=== PATIENT | male | born 1960 | race Caucasian/White ===

== ENCOUNTER 2018-09-11 08:27 | Day surgery (SDC) | payer OTHER ==
[2018-09-11 09:13] VITALS: BMI 29.0
[2018-09-11 10:47] VITALS: TEMP 97.8
[2018-09-11 11:53] VITALS: BP 118/68; PULSE 77
== END 2018-09-11 12:10 | disposition home or self-care (01) ==
LOC: JASU-ENDO 08:27
PROVIDERS: ATTEND Internal Medicine Gastroenterology
PROC: 0DJD8ZZ Inspection of Lower Intestinal Tract, Via Natural or Artificial Opening Endoscopic (ICD-10-PCS; principal; 2018-09-11 09:00)
DX: Z12.11 Encounter for screening for malignant neoplasm of colon (principal); Z80.0 Family history of malignant neoplasm of digestive organs; K63.89 Other specified diseases of intestine; K64.8 Other hemorrhoids

== ENCOUNTER 2019-08-12 10:44 | Day surgery (SDC) | payer OTHER ==
[2019-08-12 11:39] VITALS: BMI 29.0
[2019-08-12 12:43] VITALS: TEMP 97.5
[2019-08-12 13:55] VITALS: BP 109/72; PULSE 74
== END 2019-08-12 13:10 | disposition home or self-care (01) ==
LOC: JASU-ENDO 10:44
PROVIDERS: ATTEND Internal Medicine Gastroenterology
PROC: 0DB68ZX Excision of Stomach, Via Natural or Artificial Opening Endoscopic, Diagnostic (ICD-10-PCS; 2019-08-12)
PROC: 0DB18ZX Excision of Upper Esophagus, Via Natural or Artificial Opening Endoscopic, Diagnostic (ICD-10-PCS; principal; 2019-08-12 12:00)
DX: K21.0 Gastro-esophageal reflux disease with esophagitis (principal); K25.9 Gastric ulcer, unspecified as acute or chronic, without hemorrhage or perforation; Z98.84 Bariatric surgery status; J44.9 Chronic obstructive pulmonary disease, unspecified; I10 Essential (primary) hypertension
CPT/HCPCS: 88305-TC; 88312-TC; 88342-TC

== ENCOUNTER 2021-06-26 04:45 | Day surgery (SDC) | payer OTHER ==
[2021-06-25 13:25] VITALS: BMI 30.7
[2021-06-26 11:10] VITALS: TEMP 97.5
[2021-06-26 11:42] VITALS: BP 105/75; PULSE 93
== END 2021-06-26 11:58 | disposition home or self-care (01) ==
LOC: JASU-ENDO 04:45
PROVIDERS: ATTEND Internal Medicine Gastroenterology
PROC: 0DBL8ZX Excision of Transverse Colon, Via Natural or Artificial Opening Endoscopic, Diagnostic (ICD-10-PCS; principal; 2021-06-26 10:30)
DX: Z12.11 Encounter for screening for malignant neoplasm of colon (principal); Z86.010 Personal history of colon polyps; Z80.0 Family history of malignant neoplasm of digestive organs; D12.3 Benign neoplasm of transverse colon; K64.8 Other hemorrhoids; E11.9 Type 2 diabetes mellitus without complications; I10 Essential (primary) hypertension
CPT/HCPCS: 88305-TC